=== PATIENT | female | born 1965 | race Caucasian/White ===

== ENCOUNTER 2023-02-07 00:19 | Emergency (ER) | payer MEDICARE ==
[2023-02-07 00:28] VITALS: RESP 18; TEMP 96.8; O2SAT 97
--- NOTE | 2023-02-07 01:07 | ERPHSYRPT ---
- History of Present Illness Time Seen by Provider: 02/07/23 01:08 Source: patient Exam Limitations: no limitations Patient Subjective Stated Complaint: rt arm burning to mid upper arm Triage Nursing Assessment: pt ambulated into ER without diff, she is here with her granddaughter who is a pt and decided to check in herself. Pt was sitting in the ER room with her granddaughter and her right arm started burning at 0020. Pt c/o rt arm burning which starts at the thumb and goes up to the mid upper arm. Pt denies any burning to that arm at this time. Pt is able to move rt arm without diff. 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 Physician History: Patient is a 57-year-old female presents to our ED for evaluation post transient burning sensation in her right arm from her thumb to her elbow. Symptoms lasted about 20 seconds and resolved. Upon my evaluation patient was asymptomatic. Neurologic exam normal. Patient had no complaints. No associated motor dysfunction. No associated nausea vomiting or diaphoresis. No weakness. No chest pain or shortness of breath. Patient otherwise feels well. She voices no other complaints or concerns at this time. Portions of this note were created with voice recognition technology. There may be grammatical, spelling, punctuation or sound alike errors Timing/Duration: today Severity: mild Modifying Factors: Improves With: other (Symptoms lasted for about 20 seconds then completely resolved.) Associated Symptoms: denies symptoms Allergies/Adverse Reactions: morphine Allergy (Verified 02/07/23 00:38) Vzpazvo-SSS-CxB Reductase Inhibitor [Mvfgzkg-Jcp-Svx Reductase Inhibitor] Allergy (Verified 02/07/23 00:38) inhalers Allergy (Uncoded 02/07/23 00:38) steriods Allergy (Uncoded 02/07/23 00:38) Home Medications: ALPRAZolam 1 MG [Xanax 1 mg] 0.5 mg PO QID PRN PRN 10/04/16 [History] Cyanocobalamin (Vitamin B-12) [Vitamin B-12] 1,000 mcg PO .MONTHLY 10/04/16 [History] Metoprolol Succinate 100 mg [Toprol Xl 100 MG] 100 mg PO BID 10/04/16 [History] Vits W-Ca,Fe,FA(<1Mg) [] 1 each PO DAILY 10/04/16 [History] buPROPion HCL [Wellbutrin Xl] 300 mg PO DAILY 10/04/16 [History] Hx Tetanus, Diphtheria Vaccination/Date Given: (unknown) Hx Influenza Vaccination/Date Given: No Hx Pneumococcal Vaccination/Date Given: No Immunizations Up to Date: No Travel Risk - International Travel Have you traveled outside of the country in past 3 weeks: No - Coronavirus Screening Are you exhibiting any of the following symptoms?: No Close contact with a COVID-19 positive Pt in past 14-21 Days: No - Vaccine Status Have you recieved a Covid-19 vaccination: No - Review of Systems Constitutional: No Symptoms, No Fever, No Chills Eyes: No Symptoms Ears, Nose, & Throat: No Symptoms Respiratory: No Symptoms, No Cough, No Dyspnea Cardiac: No Symptoms, No Chest Pain, No Edema, No Syncope Abdominal/Gastrointestinal: No Symptoms, No Abdominal Pain, No Nausea, No Vomiting, No Diarrhea Genitourinary Symptoms: No Symptoms, No Dysuria Musculoskeletal: No Symptoms, No Back Pain, No Neck Pain Skin: No Symptoms, No Rash Neurological: No Symptoms, No Dizziness, No Focal Weakness, No Sensory Changes Psychological: No Symptoms Endocrine: No Symptoms Hematologic/Lymphatic: No Symptoms Immunological/Allergic: No Symptoms All Other Systems: Reviewed and Negative - Past Medical History Pertinent Past Medical History: Yes Neurological History: Migraines Cardiac History: High Cholesterol, Hypertension Respiratory History: No Pertinent History Endocrine Medical History: Diabetes Type II, Other Musculoskeletal History: Fibromyalgia GI Medical History: Gallbladder Disease Other Medical History: Gastric bypass, high liver enzymes, x-ray of her back. History of going to [facility]. - Past Surgical History Past Surgical History: Yes Neuro Surgical History: No Pertinent History Cardiac: No Pertinent History Respiratory: No Pertinent History Gastrointestinal: Cholecystectomy, Other Genitourinary: No Pertinent History Musculoskeletal: Orthopedic Surgery Female Surgical History: Hysterectomy Other Surgical History: gastric bypass, rt tibia repair - Social History Smoking Status: Current every day smoker How long have you smoked: 8 Exposure to second hand smoke: Yes Drug Use: none Patient Lives Alone: Yes - Nursing Vital Signs Nursing Vital Signs: Initial Vital Signs Temperature 96.8 F 02/07/23 00:25 Pulse Rate 64 02/07/23 00:25 Respiratory Rate 18 02/07/23 00:25 Blood Pressure 184/96 02/07/23 00:25 O2 Sat by Pulse Oximetry 97 02/07/23 00:25 Pain Scale Pain Intensity 10 - Physical Exam General Appearance: no apparent distress, alert Eye Exam: PERRL/EOMI, eyes nml inspection Ears, Nose, Throat Exam: normal ENT inspection, TMs normal, pharynx normal, moist mucous membranes Neck Exam: normal inspection, non-tender, supple, full range of motion Respiratory Exam: normal breath sounds, lungs clear, airway intact, No r espiratory distress Cardiovascular Exam: regular rate/rhythm, normal heart sounds, normal peripheral pulses Gastrointestinal/Abdomen Exam: soft, normal bowel sounds, No tenderness, No mass Back Exam: normal inspection, normal range of motion, No CVA tenderness, No vertebral tenderness Extremity Exam: normal inspection, normal range of motion, pelvis stable Neurologic Exam: alert, oriented x 3, cooperative, normal mood/affect, nml cerebellar function, nml station & gait, sensation nml, No motor deficits Skin Exam: normal color, warm, dry, No rash Lymphatic Exam: No adenopathy SpO2 Interpretation: normal SpO2: 97 O2 Delivery: Room Air - Course Nursing assessment & vital signs reviewed: Yes - Progress Progress: improved Progress Note: Patient is a 57-year-old female presents to our ED for evaluation of transient burning sensation from her thumb to her elbow. Symptoms lasted for about 20 seconds as. Patient checked in as she was here with her granddaughter for an unrelated problem. Patient was asymptomatic during my exam. Vitals stable. No indication for further work-up. Patient's neurologic exam was normal. Patient advised to follow-up with her primary care doctor within 48 hours for reevaluation. Portions of this note were created with voice recognition technology. There may be grammatical, spelling, punctuation or sound alike errors Age gender, PMH/PQ , (co-morbidities that complicate presentation) , med class, PSH, (smoker) method of arrival, CC (acute, chronic or acute on chronic), State COPA level and why or if critical. vitals, Significant ROS/PE findings, working diagnoses, Complexity of problem addressed is moderate, acute complicated No critical care time Complex of data reviewed and analyzed is none. No specialized testing ordered. Diagnosis made based on history and physical exam. Risk of complication and or risk of morbidity/mortality of patient management is minimal. Vital stable. Time spent to discharge patient is approximately 10 minutes. Plan of care established for shared decision making. No social determinants of health present to impede follow-up. Portions of this note were created with voice recognition technology. There may be grammatical, spelling, punctuation or sound alike errors 02/07/23 01:11 Counseled pt/family regarding: diagnosis, need for follow-up - Departure Departure Disposition: Home Clinical Impression: Paresthesia Condition: Stable Critical Care Time: No Referrals: LEIGH ARREGUIN MD [Primary Care Provider] - Follow up/PCP as directed Additional Instructions: Discharge/Care Plan WISAM JAMA was seen on 02/07/23 in the Emergency Room. The patient was counseled regarding Diagnosis,Lab results, Imaging studies, need for follow up and when to return to the Emergency Room. Prescriptions given: Discharge Note I have spoken with the patient and/or caregivers. I have explained the patient's condition, diagnosis and treatment plan based on the information available to me at this time. I have answered the patient's and/or caregiver's questions and addressed any concerns. The patient and/or caregivers have as good understanding of the patient's diagnosis, condition and treatment plan as can be expected at this point. The vital signs have been stable. The patient's condition is stable and appropriate for discharge from the emergency department. The patient will pursue further outpatient evaluation with the primary care physician or other designated or consulting physician as outlined in the disc backus hospitalge instructions. The patient and/or caregivers are agreeable to this plan of care and follow-up instructions have been explained in detail. The patient and/or caregivers have received these instruction. The patient/and or caregivers are aware that any significant change in condition or worsening of symptoms should prompt an immediate return to this or the closest emergency department or call 911.
[2023-02-07 01:15] VITALS: BP 164/88; PULSE 56
== END 2023-02-07 01:14 | disposition home or self-care (01) ==
LOC: ED 00:19
DX: R20.2 Paresthesia of skin (principal); E78.5 Hyperlipidemia, unspecified; I10 Essential (primary) hypertension; E11.9 Type 2 diabetes mellitus without complications; Z79.899 Other long term (current) drug therapy; Z28.310 Unvaccinated for COVID-19; Z72.0 Tobacco use
CPT/HCPCS: 99281